=== PATIENT | male | born 1955 | race Caucasian/White ===

== ENCOUNTER 2023-09-02 17:08 | Emergency (ER) | payer MEDICARE ==
[2023-09-02 17:31] VITALS: TEMP 98
--- NOTE | 2023-09-02 18:38 | ED ---
Animal Bite HPI - General Chief Complaint: Animal Bite Stated Complaint: dog bite Time Seen by Provider: 09/02/23 17:25 Source: patient, RN notes reviewed Mode of arrival: ambulatory Limitations: no limitations - History of Present Illness Initial Comments: This is a 68-year-old male presents emergency department chief complaint of a animal bite. Patient states that he was outside mowing his lawn when a stray dog ran up to him biting his right upper extremity and left wrist. Patient denies falling or hitting his head at the time of this injury. He is unaware of when his last tetanus vaccination was. Patient denies loss of range of motion, however has pain of the areas of bites. Patient was originally evaluated at urgent care but they advised to report to the emergency department for further evaluation. No other acute complaints at this time. - Related Data Previous Rx's Medication Instructions Recorded Amoxic-Pot Clav 875-125Mg 1 tab PO Q12HR #20 tab 09/02/23 [Augmentin 875-125] Ibuprofen [Motrin] 800 mg PO Q6HR #30 tab 09/02/23 Allergies Allergy/AdvReac Type Severity Reaction Status Date / Time No Known Allergies Allergy Verified 09/02/23 17:28 Review of Systems ROS Statement: Those systems with pertinent positive or pertinent negative responses have been documented in the HPI. ROS Other: All systems not noted in ROS Statement are negative. Past Medical History Past Medical History: Hypertension History of Any Multi-Drug Resistant Organisms: None Reported Past Surgical History: No Surgical Hx Reported Past Psychological History: No Psychological Hx Reported Smoking Status: Never smoker Past Alcohol Use History: Occasional Past Drug Use History: None Reported General Exam Limitations: no limitations General appearance: alert, in no apparent distress Head exam: Present: atraumatic, normocephalic, normal inspection Eye exam: Present: normal appearance, PERRL, EOMI. Absent: scleral icterus, conjunctival injection, periorbital swelling ENT exam: Present: normal exam, mucous membranes moist Respiratory exam: Present: normal lung sounds bilaterally. Absent: respiratory distress, wheezes, rales, rhonchi, stridor Cardiovascular Exam: Present: regular rate, normal rhythm, normal heart sounds. Absent: systolic murmur, diastolic murmur, rubs, gallop, clicks GI/Abdominal exam: Present: soft, normal bowel sounds. Absent: distended, tenderness, guarding, rebound, rigid Right Elbow exam: Present: laceration (5 cm bite with 4 surrounding puncture wounds) Vascular: Present: normal capillary refill. Absent: vascular compromise Left Forearm Wrist exam: Present: laceration (3 cm distal lac) Neuro motor exam: Present: wrist extension intact, thumb opposition intact Vascular: Present: normal capillary refill. Absent: vascular compromise Neurological exam: Present: alert, oriented X3, CN II-XII intact Course Vital Signs 09/02/23 09/02/23 17:28 20:55 Temperature 98 F Pulse Rate 79 70 Respiratory 16 18 Rate Blood Pressure 181/62 145/84 O2 Sat by Pulse 99 96 Oximetry Procedures - Laceration Laceration #1 Consent Obtained: verbal consent Indication: laceration Site: upper extremity Size (cm): 4 Description: flap, avulsion, irregular Depth: involves muscle layer Anesthetic Used: lidocaine 1% Anesthesia Technique: local infiltration Pre-repair: wound explored, irrigated extensively, deep structures intact Type of Sutures: nylon Size of Sutures: 4-0 Number of Sutures: 18 Technique: simple, interrupted Patient Tolerated Procedure: well, no complications Laceration #2 Consent Obtained: verbal consent Indication: laceration Site: upper extremity (left wrist) Size (cm): 3 Description: linear Depth: simple, single layer Anesthetic Used: lidocaine 1% Anesthesia Technique: local infiltration Pre-repair: wound explored, irrigated extensively, deep structures intact Type of Sutures: nylon Size of Sutures: 4-0 Number of Sutures: 3 Technique: simple, interrupted Patient Tolerated Procedure: well, no complications Medical Decision Making - Medical Decision Making Was pt. sent in by a medical professional or institution ([facility], WASTE SPECIALIST, urgent care, hospital, or alf...) When possible be specific @ -No Did you speak to anyone other than the patient for history (EMS, parent, family, police, friend...)? What history was obtained from this source @ -No Did you review nursing and triage notes (agree or disagree)? Why? @ -I reviewed and agree with nursing and triage notes Were old charts reviewed (outside hosp., previous admission, EMS record, old EKG, old radiological studies, urgent care reports/EKG's, alf records)? Report findings @ -No old charts were reviewed Differential Diagnosis (chest pain, altered mental status, abdominal pain women, abdominal pain men, vaginal bleeding, weakness, fever, dyspnea, syncope, headache, dizziness, GI bleed, back pain, seizure, CVA, palpatations, mental health, musculoskeletal)? @ -Laceration, animal bite, this list is not all inclusive. EKG interpreted by me (3pts min.). @ -none X-rays interpreted by me (1pt min.). @ -None done CT interpreted by me (1pt min.). @ -None done U/S interpreted by me (1pt. min.). @ -None done What testing was considered but not performed or refused? (CT, X-rays, U/S, labs)? Why? @ -None What meds were considered but not given or refused? Why? @ -None Did you discuss the management of the patient with other professionals (professionals i.e. , PA, WASTE SPECIALIST, lab, RT, psych nurse, social sciences instructor, electronics maintenance technician, teacher, security officer, adult protective caseworker)? Give summary @ -No Was smoking cessation discussed for >3mins.? @ -No Was critical care preformed (if so, how long)? @ -No Were there social determinants of health that impacted care today? How? (Homelessness, low income, unemployed, alcoholism, drug addiction, transportation, low edu. Level, literacy, decrease access to med. care, [facility], rehab)? @ -No Was there de-escalation of care discussed even if they declined (Discuss DNR or withdrawal of care, Hospice)? DNR status @ -No What co-morbidities impacted this encounter? (DM, HTN, Smoking, COPD, CAD, Cancer, CVA, ARF, Chemo, Hep., AIDS, mental health diagnosis, sleep apnea, morbid obesity)? @ -None Was patient admitted / discharged? Hospital course, mention meds given and route, prescriptions, significant lab abnormalities, going to OR and other pertinent info. @ -Discharge. 68-year-old male with abdominal pain. On examination patient is noted to have history of RIGHT and left upper EXTR. The right upper extremity has a roughly 4 cm area bite wound to the mid extremity tenderness to the mu scle. Range of motion intact. Neurovascularly intact. There are also multiple puncture wounds of the right upper extremity. Additionally there is a 3 cm laceration to the left distal wrist. Patient is neurovascularly and necessarily intact of both bilateral upper extremities. Area was thoroughly cleansed with sterile water and Betadine solution. Manage 3 sutures placed in the left. Patient was discharged home on oral Augmentin. Strict return parameters discussed with the patient he is verbalized understanding. Discussed with patient rabies vaccine he has declined at this time. case discussed with Dr. Ragland Undiagnosed new problem with uncertain prognosis? @ -No Drug Therapy requiring intensive monitoring for toxicity (Heparin, Nitro, Insulin, Cardizem)? @ -No Were any procedures done? @ -wound irrigation, suture repair Diagnosis/symptom? @ -dog bite, laceration Acute, or Chronic, or Acute on Chronic? @ -acute Uncomplicated (without systemic symptoms) or Complicated (systemic symptoms)? @ -uncomplicated Side effects of treatment? @ -No Exacerbation, Progression, or Severe Exacerbation? @ -No Poses a threat to life or bodily function? How? (Chest pain, [place], MA, pneumonia, PE, COPD, DKA, ARF, appy, cholecystitis, CVA, Diverticulitis, Homicidal, Suicidal, threat to staff... and all critical care pts) @ -No Disposition Clinical Impression: Dog bite Disposition: HOME SELF-CARE Instructions (If sedation given, give patient instructions): Animal Bite (ED) Prescriptions: Amoxic-Pot Clav 875-125Mg [Augmentin 875-125] 1 tab PO Q12HR #20 tab Ibuprofen [Motrin] 800 mg PO Q6HR #30 tab Is patient prescribed a controlled substance at d/c from ED?: No Referrals: Charlie Curry MD [REFERRING] - 1-2 days
[2023-09-02] MEDS: DIPH,PERTUS(ACELL)TETVAC-LF 0.5 ML VIAL IM ONE (18:57)
[2023-09-02] MEDS: LIDOCAINE 1% INJ 10MG/ML (20 ML MDV) SQ ONE (18:57)
[2023-09-02 20:57] VITALS: BP 145/84; PULSE 70; RESP 18
== END 2023-09-02 20:57 | disposition home or self-care (01) ==
LOC: SUPCPDRO 17:08 → EC 17:08
DX: S51.051A Open bite, right elbow, initial encounter (principal); S61.552A Open bite of left wrist, initial encounter; Z23 Encounter for immunization; W54.0XXA Bitten by dog, initial encounter
CPT/HCPCS: 99283 ×2; 90471 ×2; 12002 ×2; 90715; J2001